=== PATIENT | male | born 2000 | race Caucasian/White ===

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

== ENCOUNTER 2023-10-08 18:49 | Emergency (ER) | payer MEDICAID ==
[2023-10-08 19:06] VITALS: BP 113/52; PULSE 74
== END 2023-10-08 20:34 | disposition home or self-care (01) ==
LOC: FB.ED 18:49
DX: S60.112A Contusion of left thumb with damage to nail, initial encounter (principal); Z88.0 Allergy status to penicillin; W23.0XXA Caught, crushed, jammed, or pinched between moving objects, initial encounter
CPT/HCPCS: 73140-FA; 99283

== ENCOUNTER 2023-12-07 17:52 | Emergency (ER) | payer MEDICAID ==
[2023-12-07 17:59] VITALS: BP 133/79; PULSE 71
[2023-12-07] MEDS ORDERED: Sodium Chloride 0.9% 10 ML Syringe FLUSH PRN (18:11)
[2023-12-07] MEDS: Sodium Chloride 0.9% 1,000 ML IV ONE ×2 (18:19→19:15)
[2023-12-07] MEDS: Ondansetron 4 MG/2 ML SDV IVPUSH ONE (18:19)
[2023-12-07 18:24] LABS: HEMATOCRIT 45.2 % (38.3-50.1); HEMOGLOBIN 15.6 g/dL (12.9-17.7); MEAN CORPUSCULAR HEMOGLOBIN 30.1 pg (27.0-33.3); MEAN CORPUSCULAR HGB CONC 34.5 g/dL (28.7-35.3); MEAN CORPUSCULAR VOLUME 87.3 fL (80.8-98.7); MEAN PLATELET VOLUME 8.9 fL (6.7-11.0); PLATELET COUNT,PLT 184 x10(3)uL (117-477); RED BLOOD CELL COUNT 5.17 x10(6)uL (3.90-5.90); RED CELL DISTRIBUTION WIDTH 13.3 % (12.4-15.0); WHITE BLOOD CELL COUNT,WBC 9.9 x10-3/uL (3.2-10.1)
[2023-12-07 18:27] LABS: BLOOD UREA NITROGEN,BUN 9 mg/dL (7-18); BUN/CREATININE RATIO 11.3 (9-20); CALCIUM 9.1 mg/dL (8.6-10.2); CARBON DIOXIDE,CO2 24 mmol/L (21-32); CHLORIDE,CL 99 mmol/L (100-110); CREATININE 0.8 mg/dL (0.70-1.30); EST CRCL DRUG DOSING (CG) 111.51 mL/min; ESTIMATED GFR 128 mL/min (>60); GLUCOSE RANDOM 109 mg/dL (80-116); POTASSIUM,K 3.5 mmol/L (3.5-5.3); SODIUM,NA 135 mmol/L (135-145)
[2023-12-07 18:33] LABS: A/G RATIO 1.1; ALANINE AMINOTRANSFERASE,ALT 17 U/L (12-36); ALBUMIN 4.1 g/dL (3.5-5.2); ALKALINE PHOSPHATASE 81 IU/L (56-112); ASPARTATE AMNIOTRANSFERASE,AST 16 IU/L (5-25); BILIRUBIN TOTAL 0.8 mg/dL (0.1-1.3); MAGNESIUM 2.4 mg/dL (1.8-2.5)
[2023-12-07 18:34] LABS: BAND PERCENT MAN 3 % (0-6); LYMPHOCYTES PERCENT MAN 10 % (13-37); MONOCYTES PERCENT MAN 11 % (4-12); SEG NEUTROPHILS PERCENT MAN 76 % (46-82)
[2023-12-07] MEDS: Promethazine 12.5 MG in Sodium Chloride 0.9% 50 ML IV ONE (18:36)
[2023-12-07] MEDS: Ketorolac 30 MG/ML SDV IVPUSH ONE (18:37)
[2023-12-07 18:56] LABS: INFLUENZA A NAA POSITIVE (NEGATIVE); INFLUENZA B NAA NEGATIVE (NEGATIVE); RESPIRATORY SYNCYTIAL VIR NAA NEGATIVE (NEGATIVE)
[2023-12-07 18:58] LABS: CORONAVIRUS COVID-19 NAA NEGATIVE (NEGATIVE)
[2023-12-07 19:18] LABS: BILIRUBIN,URINE NEGATIVE (NEGATIVE); GLUCOSE,URINE NORMAL (NORMAL); KETONES,URINE 15 mg/dL (NEGATIVE); LEUKOCYTE ESTERASE,URINE NEGATIVE (NEGATIVE); NITRITE,URINE NEGATIVE (NEGATIVE); OCCULT BLOOD,URINE NEGATIVE (NEGATIVE); PROTEIN,URINE NEGATIVE (NEGATIVE); UROBILINOGEN,URINE NORMAL (NEGATIVE)
[2023-12-07 19:25] LABS: COLOR,URINE YELLOW (YELLOW)
[2023-12-07 19:26] LABS: APPEARANCE,URINE CLEAR (CLEAR); BACTERIA,URINE RARE (NS); RBC,URINE 0-5 (0-5); SQUAMOUS EPITHELIAL CELLS,UR OCCASIONAL (NS,R,O); WBC,URINE 0-5 (0-5)
[2023-12-07] MEDS: Pantoprazole 40 MG Vial IVPUSH ONE (20:05)
[2023-12-07] MEDS: Iopamidol 755 Mg/ML 100 ML Bottle IV SCH (20:09)
[2023-12-07] MEDS: metroNIDAZOLE/Normal Saline 500 MG in Premix Bag 1 BAG IV ONE (21:43)
[2023-12-07] MEDS: Levofloxacin/Dextrose 5%-Water 750 MG in Premix Bag 1 BAG IV ONE (21:43)
[2023-12-07] MEDS: hydrOXYzine HCl 50 MG/ML SDV IM ONE (23:30)
== END 2023-12-07 23:31 | disposition home or self-care (01) ==
LOC: FB.ED 17:52
DX: K35.30 Acute appendicitis with localized peritonitis, without perforation or gangrene (principal); J10.1 Influenza due to other identified influenza virus with other respiratory manifestations; E86.0 Dehydration; R19.7 Diarrhea, unspecified; R11.10 Vomiting, unspecified; F17.210 Nicotine dependence, cigarettes, uncomplicated; Z79.899 Other long term (current) drug therapy; Z88.0 Allergy status to penicillin
CPT/HCPCS: 0241U; 36415; 74177; 80053; 81001; 83690; 83735; 85025; 86140; 96361; 96365; 96366; 96367; 96368; 96372; 96375; 99284; 99284-25; C9113; J1836; J1885; J1956; J2405; J2550; J3410; J3490; J7030; Q9967